=== PATIENT | male | born 1985 | race Caucasian/White ===

== ENCOUNTER 2017-03-17 16:21 | Emergency (ER) | payer OTHER ==
[2017-03-17 20:47] VITALS: BP 120/66
== END 2017-03-17 20:47 | disposition home or self-care (01) ==
LOC: ED 16:21
DX: S82.001A Unspecified fracture of right patella, initial encounter for closed fracture (principal); M25.461 Effusion, right knee; S00.83XA Contusion of other part of head, initial encounter; W18.39XA Other fall on same level, initial encounter; Y93.89 Activity, other specified; Y92.89 Other specified places as the place of occurrence of the external cause; Y99.8 Other external cause status
CPT/HCPCS: J2001

== ENCOUNTER 2017-05-25 17:54 | Emergency (ER) | payer OTHER ==
[~2017-05-25] VITALS: Ht 165.1 cm; Wt 63.5 kg
[2017-05-25 18:18] VITALS: Ht 165.1 cm; Wt 63.5 kg
[2017-05-25 19:06] VITALS: BP 123/83
== END 2017-05-25 19:06 | disposition home or self-care (01) ==
LOC: ED 17:54
DX: L01.00 Impetigo, unspecified (principal); R05 Cough; J32.9 Chronic sinusitis, unspecified